=== PATIENT | female | born 1990 | race Two or more races ===

== ENCOUNTER 2019-05-06 08:20 | Observation (INO) | payer SELFPAY ==
[~2019-05-06] VITALS: Ht 167.6 cm; Wt 101.6 kg
[2019-05-06 08:34] VITALS: BP 119/73
[2019-05-06] MEDS ORDERED: PRENATAL VIT PO (23:31)
== END 2019-05-06 09:30 | disposition home or self-care (01) ==
LOC: 4S 08:20 → UNDODISOB 09:30
PROVIDERS: ADMIT Obstetrics & Gynecology; ATTEND Obstetrics & Gynecology
DX: O46.93 Antepartum hemorrhage, unspecified, third trimester (principal); Z3A.38 38 weeks gestation of pregnancy

== ENCOUNTER 2019-05-06 21:59 | Inpatient (IN) | payer OTHER ==
[~2019-05-06] VITALS: Ht 162.6 cm; Wt 101.2 kg
[2019-05-06 23:20] VITALS: BP 123/75
[2019-05-06] MEDS ORDERED: PRENATAL VIT PO (23:31)
[2019-05-07] MEDS ORDERED: RINGERS SOLUTION,LACTATED 1,000 ML IV PRN (00:52)
[2019-05-07] MEDS ORDERED: OXYTOCIN 30 UNITS/LACT RINGERS 500 ML IV ONE (00:52)
[2019-05-07] MEDS ORDERED: RINGERS SOLUTION,LACTATED 1,000 ML IV SCH (00:52)
[2019-05-07] MEDS ORDERED: METHYLERGONOVINE MALEATE 0.2 MG/ML VIAL IM PRN (01:00)
[2019-05-07] MEDS ORDERED: METOCLOPRAMIDE HCL 5 MG/ML 2 ML VIAL IVP PRN (01:00)
[2019-05-07] MEDS ORDERED: CITRIC ACID/SODIUM CITRATE 30 ML SOLUTION UDCUP PO PRN (01:00)
[2019-05-07] MEDS ORDERED: OXYGEN THERAPY IH SCH (01:00)
[2019-05-07] MEDS ORDERED: CARBOPROST TROMETHAMINE 250 MCG/ML AMP IM PRN (01:00)
[2019-05-07] MEDS ORDERED: MISOPROSTOL 100 MCG TABLET PR ONE (01:00)
[2019-05-07] MEDS ORDERED: LIDOCAINE/PF 1% 30 ML VIAL INJ PRN (01:00)
[2019-05-07 01:43] LABS: BASOPHILS % (AUTO) 0.5 % (0.0-2.0); EOSINOPHILS % (AUTO) 0.3 % (1.0-6.0); HEMATOCRIT 34.8 % (36-46); HEMOGLOBIN 11.3 g/dL (12.0-16.0); LYMPHOCYTES % (AUTO) 14.4 % (22.0-44.0); MEAN CORPUSCULAR HEMOGLOBIN 29.6 pg (26.0-34.0); MEAN CORPUSCULAR HGB CONC 32.6 G/dL (31.0-37.0); MEAN CORPUSCULAR VOLUME 91 fL (80-100); MONOCYTES # (AUTO) 0.9 K/uL (0.1-1.0); MONOCYTES % (AUTO) 6.1 % (2.0-9.0); NEUTROPHILS # (AUTO) 11.2 K/uL (1.8-7.7); NEUTROPHILS % (AUTO) 78.7 % (40.0-70.0); PLATELET COUNT (AUTO)-OB 232 K/uL (150-450); RED BLOOD CELL COUNT(AUTO) 3.83 MIL/uL (4.00-5.20); RED CELL DISTRIBUTION WIDTH 13.8 % (11.5-14.5)
[2019-05-07] MEDS ORDERED: ROPIVACAINE HCL/PF 0.2% 100 ML ED ONE (01:54)
[2019-05-07] MEDS ORDERED: ROPIVACAINE HCL/PF 0.2% 100 ML ED PRN (02:18)
[2019-05-07] MEDS ORDERED: NALBUPHINE HCL 10 MG/ML VIAL IVP PRN (02:30)
[2019-05-07] MEDS ORDERED: DiphenhydrAMINE HCL 50 MG/ML VIAL IVP PRN (02:30)
[2019-05-07] MEDS ORDERED: ONDANSETRON HCL 4 MG/2 ML VIAL IVP PRN (02:30)
[2019-05-07] MEDS ORDERED: OXYTOCIN 30 UNITS/LACT RINGERS 500 ML IV PRN (06:56)
[2019-05-07] MEDS ORDERED: CeFAZolin 2 GM/DEXTROSE 50 ML IV ONE ×2 (08:30→08:33)
[2019-05-07] MEDS ORDERED: GLYCERIN/WITCH HAZEL LEAF 40 PADS JAR TP PRN (09:15)
[2019-05-07] MEDS ORDERED: ACETAMINOPHEN/CODEINE 300-30 MG TABLET PO PRN (09:15)
[2019-05-07] MEDS ORDERED: LANOLIN 7 GM OINTMENT TP PRN (09:15)
[2019-05-07] MEDS ORDERED: BENZOCAINE 20%/MENTHOL 56 GM SPRAY CANISTER TP PRN (09:15)
[2019-05-07] MEDS: ACETAMINOPHEN/CODEINE 300-30 MG TABLET PO PRN ×2 (10:31→15:45)
[2019-05-07] MEDS: IBUPROFEN 800 MG TABLET PO SCH ×3 (10:31→21:53)
[2019-05-07] MEDS: MAGNESIUM HYDROXIDE SUSPENSION 30 ML UDCUP PO SCH (21:53)
[2019-05-08] MEDS: IBUPROFEN 800 MG TABLET PO SCH ×2 (03:20→09:41)
[2019-05-08] MEDS ORDERED: IBUP-2071 PO (08:58)
[2019-05-08] MEDS: MAGNESIUM HYDROXIDE SUSPENSION 30 ML UDCUP PO SCH (09:42)
== END 2019-05-08 10:05 | disposition home or self-care (01) | DRG 807 ==
LOC: OBSVTOIN 21:59 → 4S 21:59
PROVIDERS: ADMIT Obstetrics & Gynecology; ATTEND Obstetrics & Gynecology
PROC: 10E0XZZ Delivery of Products of Conception, External Approach (ICD-10-PCS; principal; 2019-05-07)
PROC: 3E0R3BZ Introduction of Anesthetic Agent into Spinal Canal, Percutaneous Approach (ICD-10-PCS; 2019-05-07)
PROC: 00HU33Z Insertion of Infusion Device into Spinal Canal, Percutaneous Approach (ICD-10-PCS; 2019-05-07)
DX: O69.81X0 Labor and delivery complicated by cord around neck, without compression, not applicable or unspecified (principal); Z37.0 Single live birth; Z3A.38 38 weeks gestation of pregnancy
CPT/HCPCS: 86850; 86900; 86901; J0690; J2590; J2795; J7120